=== PATIENT | female | born 1950 | race African-American/Black ===

== ENCOUNTER → 2017-04-22 | Outpatient (CLI) | payer MEDICARE, BC | END | disposition home or self-care (01) | LOC: KCIC 12:03 | DX: R05 Cough (principal) | CPT/HCPCS: 71046 ==

== ENCOUNTER → 2018-01-30 | Outpatient (CLI) | payer MEDICARE, BC ==
--- NOTE | 2018-01-30 10:54 | KCIC ---
MRI Lumbar Spine without contrast History: Back pain, bilateral radiculopathy, previous surgery Technique: Multiplanar, multi sequential noncontrast MR imaging was performed of the lumbar spine. Contrast: None Comparison: June 11, 2012 Findings: Lumbar vertebral body stature is overall maintained, Schmorl's nodes and endplate irregularity of the inferior aspect of L4 similar. There is again very minimal grade 1 anterior spondylolisthesis L4-5. There is again moderate degenerative disc disease at L4-5 and minimally at L3-4, mild disc desiccation L5-S1. Conus terminates at L1. There is nonspecific edema of the posterior subcutaneous fat of the lower back as seen previously. There is no new significant marrow edema. L2-L3: Spinal canal and neural foramina are adequate. There is mild to moderate facet degenerative change and buckling of the ligamentum flavum. L3-L4: There is [id number] buckling of the ligamentum flavum and mild facet degenerative change. There is again negligible disc osteophyte complex. There is again [id number] narrowing of the left neural foramen primarily from disc osteophyte complex which contacts the undersurface exiting left L3 nerve root as seen previously. Right neural foramen is overall adequate. There is very mild narrowing of the far left lateral recess from posteriorly. L4-L5: There is again small left laminectomy defect. There is again moderate to severe left and [id number]-[id number] right facet degenerative change. There is again buckling of the ligamentum flavum greater on the left laterally. There is again signal change along the posterior annular margin, no contrast given to evaluate for underlying enhancing fibrosis although probable component of shallow protrusion more centrally slightly more prominent in the interval. There is again moderate to severe lateral recess stenosis at location of descending left L5 nerve root. Central canal and right lateral recess are overall adequate. Right neural foramen is adequate. There is again severe narrowing of the left neural foramen with contact exiting left L4 nerve root in the neural foramen and proximal extraforaminal region by disc osteophyte complex. L5-S1: There is again bilateral facet degenerative change, fluid in the facet articulations. There is mild buckling of the ligamentum flavum. There is again mild narrowing of the far left lateral recess from posteriorly due to ligamentum flavum. Otherwise spinal canal is adequate. There is mild narrowing of the left neural foramen, again moderate narrowing of the right neural foramen due to disc osteophyte complex inferiorly as well as posterior narrowing by the ligamentum flavum and facet. Impression: 1. Findings are fairly similar compared with the 2013 exam other than very slightly more prominent posterior likely protrusion centrally at L4-5. There is again left lateral recess stenosis at L4-5 with impingement of the descending left L5 nerve root. There is again neural foramina compromise as stated most notable on the left at L3-4 and L4-5 and to a somewhat lesser degree on the right at L5-S1. There is again degenerative disc disease greatest at L4-5, minimally at L3-4, mild disc desiccation L5-S1. There is unchanged very mild grade 1 anterior spondylolisthesis L4-5 at which there is facet degenerative change. Electronically signed by: Steven Jose MD (01/30/2018 10:51 AM) [facility]
== END | disposition home or self-care (01) ==
LOC: KCIC MRI 07:48
PROVIDERS: ATTEND Physical Medicine & Rehabilitation
DX: M51.36 Other intervertebral disc degeneration, lumbar region (principal); M51.37 Other intervertebral disc degeneration, lumbosacral region; M25.78 Osteophyte, vertebrae; M43.16 Spondylolisthesis, lumbar region; M48.061 Spinal stenosis, lumbar region without neurogenic claudication
CPT/HCPCS: 72148

== ENCOUNTER → 2018-02-12 | Outpatient (CLI) | payer MEDICARE, BC ==
--- NOTE | 2018-02-13 12:01 | SLEEP ---
DATE OF STUDY: 02/12/2018 SLEEP STUDY ATTENDING PHYSICIAN: Dr. Micheal Saul. REFERRING PHYSICIAN: Dr. Rajesh Us. HISTORY: The patient is a 67 years old who weighs 215 pounds with a BMI of 40. The patient's [facility] score was 7. The patient had sleep study 12 years ago and was positive for ENRIQUE, but she did not wear CPAP. During the night study, the patient spent 399 minutes in bed and slept for 361 minutes with a sleep efficiency of 91%. Sleep latency was 19 minutes with absent REM sleep. Overall, sleep architecture showed normal stage 1 sleep, increased stage 2 sleep, normal slow wave sleep and absent REM sleep. During the night study, the patient had 2 obstructive apneas, no mixed or central apneas and 52 hypopneas. The patient's apnea hypopnea index was 9 per hour with a supine index of 17 per hour. REM sleep was not seen. Nocturnal oximetry study revealed an average oxygen saturation of 86% with the lowest of 73%. 92% of the time oxygen saturation remained between 80% and 89% and 8% of the time between 70% and 79%. EKG monitoring revealed abnormal rhythm. It appeared to be a paced rhythm, average heart rate was 70 beats per minute. PLMs were not seen. Due to low AHI, the patient did not meet the split night criteria for CPAP initiation. IMPRESSION: 1. Mild sleep apnea-hypopnea syndrome with moderate increase during supine sleep. Absence of REM sleep can underestimate the severity of sleep apnea. Total AHI 9 per hour with a supine AHI of 17 per hour. 2. Nocturnal hypoxia related to obstructive sleep apnea and hypoventilation. 3. No clinically significant periodic limb movement disorders. RECOMMENDATIONS: 1. If the patient is clinically symptomatic, then she should return to the sleep lab for CPAP titration study. Alternate treatment option would include oral appliances as recommended by the dentist. 2. Weight loss is advised. 3. Avoid [employer] depressants. 4. Caution regarding driving until symptoms of sleep apnea resolve with the above recommendation. 5. Avoid supine sleep. NESSA WINN MD DR: AUFA/lincoln JOB#: [id number] / [id number] TITI
== END | disposition home or self-care (01) ==
LOC: SLPLAB 19:13
PROVIDERS: ATTEND Internal Medicine Pulmonary Disease
DX: G47.33 Obstructive sleep apnea (adult) (pediatric) (principal); G47.34 Idiopathic sleep related nonobstructive alveolar hypoventilation
CPT/HCPCS: 95810

== ENCOUNTER → 2018-04-09 | Outpatient (CLI) | payer MEDICARE, BC ==
--- NOTE | 2018-04-11 12:55 | SLEEP ---
DATE OF STUDY: 04/09/2018 SLEEP STUDY ATTENDING PHYSICIAN: Micheal Saul M.D. REFERRING PHYSICIAN: Jean Us M.D. The patient is 68 years old who weighs 215 pounds with a BMI of 40. The patient had a previous sleep study and was found to have ENRIQUE. Her total AHI was 9 per hour. Supine AHI 17 per hour. REM sleep was not seen during the study. The patient was referred back for CPAP titration study. During the night study, the patient spent 10 minutes in bed and slept for 437 minutes, with a sleep efficiency of 86%. Sleep latency was 3 minutes with a REM latency of 59 minutes. Overall, sleep architecture showed increased stage 1 sleep, normal stage 2 sleep, increased slow wave and normal REM sleep. The patient was started on CPAP at 5 cm water and titrated up to 15 cm water. At the final pressure, the patient slept for 82 minutes. The patient had supine as well as REM sleep. The patient's AHI was reduced to 2 per hour and oxygen saturation remained above 88%, with few spot desaturations to 86%. The patient used small-sized full-face mask. No clinically significant PLMS observed. EKG monitoring revealed average heart rate of 65 beats per minute. No sustained arrhythmias observed. IMPRESSION: 1. Sleep apnea diagnosed by previous sleep study. 2. No clinically significant periodic limb movements of sleep. RECOMMENDATIONS: 1. CPAP at 15 cm water completely eliminated the patient's sleep apnea, should be used on a nightly basis. 2. Follow up in 4-6 weeks to assess compliance with CPAP and to document clinical improvement. 3. Weight loss is advised. 4. Avoid [employer] depressants. 5. Cautioned regarding driving until symptoms of sleep apnea resolve with the use of CPAP. NESSA WINN MD DR: AFUA/lincoln JOB#: [id number] / [id number] JEAN Hernández MD
== END | disposition home or self-care (01) ==
LOC: RT 19:35
PROVIDERS: ATTEND Internal Medicine Pulmonary Disease
DX: G47.33 Obstructive sleep apnea (adult) (pediatric) (principal)
CPT/HCPCS: 95811

== ENCOUNTER → 2021-07-25 | Outpatient (CLI) | payer MEDICARE, BC ==
--- NOTE | 2021-07-26 11:30 | KCIC ---
MR LUMBAR SPINE WO [id number], MRI THORACIC SPINE WO History:Reason: OSTEOMYELITIS / Spl. Instructions: / History: Pt states acute osteomyelitis last Stan y. Chronic, severe spine pain since. None. Technique: Multiplanar, multi sequential noncontrast MR imaging was performed of the thoracic and lum bar spine. Comparison: MRI lumbar spine January 30, 2018 Findings: Thoracic spine: Motion degraded evaluation. Sequela of discitis osteomyelitis T7-T8. Focal kyphotic deformity with re modeling of the T7 inferior and T8 superior endplates. Mild endplate edema an intradiscal edema. Mild paravertebral edema. There is retropulsion at this level contributing to moderate canal narrowing. N o additional levels are involved. No acute fracture. No pathologic signal abnormality within the thoracic spinal cord. Mild multilevel degenerative disc changes. The grade 1 anterolisthesis T1 on T2. T4-T5 mild canal vinay rowing. Moderate left and severe right T7-T8 neuroforaminal narrowing. Mild T8-T9, T9-T10 and T10-T11 neuroforaminal narrowing. Left thyroid nodule measures 1.5 x 1.6 cm. Lumbar spine MRI: Grade 1 anterolisthesis L4 on L5 and L5 on S1. Slight anterolisthesis L3 on L4. No acute fracture. Conus terminates at the normal location. No evidence of nerve root clumping. L1-L2: No canal or neuroforaminal narrowing. L2-L3: Minimal disc bulge. Mild facet arthropathy. No canal narrowing. Mild bilateral neuroforaminal narrowing. L3-L4: Anterolisthesis. Broad-based disc bulge. Moderate facet arthropathy. Mild subarticular recess narrowing. Ligament of flavum thickening. Severe left and moderate right neuroforaminal narrowing. I mpingement of the exiting left L3 nerve root. L4-L5: Postoperative changes left hemilaminectomy. Anterolisthesis. Central disc extrusion with exte nsion into the left neuroforamen. Mild canal narrowing. Advanced facet arthropathy. Bilateral subarti cular recess narrowing. Abutment of bilateral descending L5 nerve roots, left greater than right. Sev ere left neuroforaminal narrowing with impingement of the exiting left L4 nerve root. L5-S1: Small broad-based disc bulge. Right subarticular disc extrusion extending superiorly. Abutmen t and displacement of the right descending S1 nerve root. Advanced facet arthropathy. No canal narrow ing. Subarticular recess narrowing. Moderate to severe bilateral neuroforaminal narrowing. Abutment o f the exiting L5 nerve roots. Impression: Thoracic spine MRI: 1. Sequelae of T7-T8 discitis osteomyelitis. Mild residual edema. Focal kyphosis and retropulsion co ntributing to moderate canal narrowing. 2. Mild additional thoracic spondylosis. Lumbar spine MRI: 1. Multilevel lumbar spondylosis most prominent L4-5 and L5-S1. 2. L5-S1 right subarticular disc extrusion extending superiorly with abutment of the of the descendi ng right S1 nerve root. Correlate for radiculopathy. 3. L4-L5 subarticular recess narrowing with abutment of the descending L5 nerve roots. Correlate for radiculopathy. 4. Severe neuroforaminal narrowing left L3-L4 and left L4-5 with impingement of exiting nerve roots. Correlate for radiculopathy. Electronically signed by: Griffin Aburto DO (07/26/2021 11:27 AM) [id number]
== END ==
LOC: KCIC MRI 12:28
PROVIDERS: ATTEND Internal Medicine Infectious Disease
DX: M47.817 Spondylosis without myelopathy or radiculopathy, lumbosacral region (principal); M51.27 Other intervertebral disc displacement, lumbosacral region; M48.07 Spinal stenosis, lumbosacral region; M48.05 Spinal stenosis, thoracolumbar region; M43.17 Spondylolisthesis, lumbosacral region; M43.15 Spondylolisthesis, thoracolumbar region; E04.1 Nontoxic single thyroid nodule; M46.24 Osteomyelitis of vertebra, thoracic region; M86.9 Osteomyelitis, unspecified
CPT/HCPCS: 72146; 72148